=== PATIENT | male | born 1935 | race Caucasian/White ===

== ENCOUNTER 2018-06-05 04:32 | Inpatient (IN) ==
[2018-06-05] MEDS ORDERED: MORPHINE IV ONE (04:37)
[2018-06-05] MEDS ORDERED: ZOFRAN IV ONE (04:37)
[2018-06-05] MEDS ORDERED: TORADOL IV ONE (04:37)
[2018-06-05] MEDS ORDERED: NS 1,000 ML IV ONE (04:37)
--- NOTE | 2018-06-05 04:40 | PROVIDER DOCUMENTATION ---
HPI-Musculoskeletal Pain/Inj - GENERAL Chief Complaint: Fall Stated Complaint: GENERAL Time Seen by Provider: 06/05/18 04:34 Source: patient, EMS - HX OF PRESENT ILLNESS-MUSKULOSKELTAL Nature of Presenting Problem: Patient states that he has had diarrhea for a couple of days, and falls a lot, tonight got out of bed to go to the bathroom, was not able to hold his stool and had diarrhea on the floor. Patient then slipped and fell on his back and right shoulder, injuring his shoulder. States he laid there for "a good long while." EMS report there was stool "all over the place" and "he was covered in it." No D-stick was done, no IV started. Patient complains of having right shoulder and back pain and chills. Similar symptoms -11/26- fall with fracture to right clavicle and 01/25 fall with hip fracture Quality of Pain: reports: sharp Severity in ED: severe Onset/Duration: 4-6 hours ago Timing: still present, constant Modifying Factors: improves with: immobilization. worse with: movement Any recent injury?: Yes (as above) Locality of Occurance: Other (lives at [place]) Similar Symptoms Previously?: Yes (as above) Recently seen or treated by another doctor?: No Review of Systems - Adult - REVIEW OF SYSTEMS - ADULT Constitutional: reports: see HPI, chills. denies: fever, fatique, night sweats , weight gain, weight loss Eyes: reports: no symptoms reported Ears, Nose, Mouth & Throat: reports: no symptoms reported Cardiovascular: reports: no symptoms reported Respiratory: reports: no symptoms reported Gastrointestinal: reports: see HPI, diarrhea, nausea. denies: abdominal pain, hematemesis, constipation, difficulty swallowing, frequent heartburn, poor appetite, rectal bleeding, vomiting Genitourinary: reports: no symptoms reported Musculoskeletal: reports: no symptoms reported Integumentary: reports: no symptoms reported Neurological: reports: no symptoms reported Psychiatric: reports: no symptoms reported Endocrine: reports: no symptoms reported Hematologic/Lymphatic: reports: no symptoms reported Allergic/Immunologic: reports: no symptoms reported All Other Systems: Reviewed and Negative Past History - Adult - PAST MEDICAL HISTORY-ADULT Review of Records: reports: Old Records Reviewed, Nursing Assessment Review, Medications Reviewed, Social history reviewed & non-contributory. Major Childhood Illnesses: reports: denies history Cardiovascular: reports: HTN Respiratory: reports: denies history Gastrointestinal: reports: denies history Obstetrical/Gynecological: reports: denies history Genitourinary: reports: denies history Musculoskeletal: reports: denies history Neurological: reports: denies history Endocrine/Immune: reports: Diabetes Other Conditions: reports: denies history - PRIOR SURGERIES/PROCEDURES Surgical/Procedure History: reports: recent surgery (L hip replacement) - IMMUNIZATION STATUS Childhood Immunizations: See Nurse Assessment Flu Vaccine: See Nurse Assessment - FAMILY HISTORY Family History: reviewed, not pertinent - SOCIAL HISTORY Smoking: non-smoker Substance Use: none/never Alcohol Use Frequency: never Living Situation: alone (at [place]) Physical Exam-Injury Related - Physical Exam-Injury Related Initial Vital Signs Reviewed: Yes (VSSAF) General Appearance: alert, mild distress, anxious Eyes: PERRL/EOMI, pink conjunctivae Head, Ears, Nose, Mouth & Throat: normocephalic/atraumatic, normal ENT inspection, pharynx normal, other (dry mucous membranes). negative: moist mucous membranes Neck: non-tender, full range of motion, supple, normal inspection Respiratory: chest non-tender, lungs clear, no pleuratic chest pain, no respiratory distress, no accessory muscle use, rhonchi (rare scattered) Cardiovascular: normal peripheral pulses, regular rate, rhythm, no edema, no gallop, no JVD, no murmur Chest/Breast: no tenderness Abdominal Exam: normal bowel sounds, non tender, soft, no organomegaly, abnormal bowel sounds (hyperactive) Lymphatic: no adenopathy Back Exam: no CVA tenderness, decreased range of motion, muscle spasm Extremity: no pedal edema, no calf tenderness, swelling, tenderness (right shoulder anteriorly, held in ADduction and internal rotation). negative: normal range of motion, non-tender, normal gait, normal inspection Integumentary: normal color, blanching, other (cool, clammy). 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 tested, grossly normal, no motor/sensory deficits Psych/Mental Status: normal mood/affect, normal thought content, normal thought process, oriented x 3 - Glascow Coma Score Best Eye Response ([place]): (4) open spontaneously Best Verbal Response ([place]): (5) oriented Best Motor Response ([place]): (6) obeys commands Progress - PLAN OF CARE/RESULTS Progress/Plan/Lab Results: Vital Signs - 8 hr 06/05/18 05:06 06/05/18 08:00 06/05/18 08:25 Temperature 97.7 F 97.8 F Pulse Rate 64 78 Respiratory Rate 16 16 Blood Pressure 146/54 135/81 O2 Sat by Pulse Oximetry 96 97 06/05/18 05:20 Influenza Screen - Final Nasopharyngeal Laboratory Results - last 24 hr 06/05/18 06/05/18 06/05/18 05:20 05:20 05:20 WBC 6.27 RBC 3.66 L Hgb 10.8 L Hct 32.8 L MCV 89.6 MCH 29.5 MCHC 32.9 L RDW Std Deviation 14.9 H Plt Count 156 MPV 10.2 Immature Gran % (Auto) 0.0 Neut % (Auto) 70.9 Lymph % (Auto) 16.1 L [place] % (Auto) 9.1 Eos % (Auto) 3.7 Baso % (Auto) 0.2 Immature Gran # (Auto) 0.00 Neut # (Auto) 4.45 Lymph # (Auto) 1.01 L [place] # (Auto) 0.57 Eos # (Auto) 0.23 Baso # (Auto) 0.01 PT INR Specimen Type ARTERIAL Sample Site R RADIAL pH 7.49 H pCO2 37 pO2 90 HCO3 28.5 H Base Excess 4.6 H Oxyhemoglobin 96.2 ABG O2 Sat (Calculated) 14.2 L ABG O2 Saturation 98.2 ABG Carboxyhemoglobin 1.30 ABG Methemoglobin 0.7 Umberto Test YES A-a O2 Difference 13.0 Total Hemoglobin 10.4 L Lactate 0.90 Blood Gas Modality ROOM AIR FiO2 % 21.0 Sodium 138 Potassium 4.5 Chloride 97 L Carbon Dioxide 30 Anion Gap 11 BUN 24 H Creatinine 0.8 Estimated GFR/1.73 m2 > 60 BUN/Creatinine Ratio 30 Glucose 119 H POC Glucose Calculated Osmolality 281 Calcium 8.9 Magnesium 1.7 Total Bilirubin 0.36 AST 19 ALT 11 Alkaline Phosphatase 62 Creatine Kinase 171 Troponin T Jst-[id number]-Uxsbrryhgwf Pept Total Protein 7.0 Albumin 4.3 Globulin 2.7 Albumin/Globulin Ratio 1.6 Plasma Lactate Urine Source Urine Color Urine Turbidity Urine pH Ur Specific [place] Urine Protein Ur Glucose (Stick) Ur Ketones (Stick) Urine Blood Urine Nitrite Urine Bilirubin Urobilinogen Dipstick Urine Leukocytes Urine WBC (Auto) Urine RBC (Auto) U Epithel Cells (Auto) Urine Bacteria (Auto) Acetone Level NEGATIVE 06/05/18 06/05/18 06/05/18 05:20 05:20 05:20 WBC RBC Hgb Hct MCV MCH MCHC RDW Std Deviation Plt Count MPV Immature Gran % (Auto) Neut % (Auto) Lymph % (Auto) [place] % (Auto) Eos % (Auto) Baso % (Auto) Immature Gran # (Auto) Neut # (Auto) Lymph # (Auto) [place] # (Auto) Eos # (Auto) Baso # (Auto) PT 14.7 INR 1.07 Specimen Type Sample Site pH pCO2 pO2 HCO3 Base Excess Oxyhemoglobin ABG O2 Sat (Calculated) ABG O2 Saturation ABG Carboxyhemoglobin ABG Methemoglobin Umberto Test A-a O2 Difference Total Hemoglobin Lactate Blood Gas Modality FiO2 % Sodium Potassium Chloride Carbon Dioxide Anion Gap BUN Creatinine Estimated GFR/1.73 m2 BUN/Creatinine Ratio Glucose POC Glucose Calculated Osmolality Calcium Magnesium Total Bilirubin AST ALT Alkaline Phosphatase Creatine Kinase Troponin T Udx-S-Mlrovkijlgw Pept 148 Total Protein Albumin Globulin Albumin/Globulin Ratio Plasma Lactate 1.1 Urine Source Urine Color Urine Turbidity Urine pH Ur Specific [place] Urine Protein Ur Glucose (Stick) Ur Ketones (Stick) Urine Blood Urine Nitrite Urine Bilirubin Urobilinogen Dipstick Urine Leukocytes Urine WBC (Auto) Urine RBC (Auto) U Epithel Cells (Auto) Urine Bacteria (Auto) Acetone Level 06/05/18 06/05/18 06/05/18 05:20 05:25 06:45 WBC RBC Hgb Hct MCV MCH MCHC RDW Std Deviation Plt Count MPV Immature Gran % (Auto) Neut % (Auto) Lymph % (Auto) [place] % (Auto) Eos % (Auto) Baso % (Auto) Immature Gran # (Auto) Neut # (Auto) Lymph # (Auto) [place] # (Auto) Eos # (Auto) Baso # (Auto) PT INR Specimen Type Sample Site pH pCO2 pO2 HCO3 Base Excess Oxyhemoglobin ABG O2 Sat (Calculated) ABG O2 Saturation ABG Carboxyhemoglobin ABG Methemoglobin Umberto Test A-a O2 Difference Total Hemoglobin Lactate Blood Gas Modality FiO2 % Sodium Potassium Chloride Carbon Dioxide Anion Gap BUN Creatinine Estimated GFR/1.73 m2 BUN/Creatinine Ratio Glucose POC Glucose 119 H Calculated Osmolality Calcium Magnesium Total Bilirubin AST ALT Alkaline Phosphatase Creatine Kinase Troponin T < 0.010 Hwm-P-Bsnvdnxqwjw Pept Total Protein Albumin Globulin Albumin/Globulin Ratio Plasma Lactate Urine Source CLEAN CATCH Urine Color YELLOW Urine Turbidity CLEAR Urine pH 7.5 Ur Specific [place] 1.005 Urine Protein NEGATIVE Ur Glucose (Stick) NEGATIVE Ur Ketones (Stick) NEGATIVE Urine Blood NEGATIVE Urine Nitrite NEGATIVE Urine Bilirubin NEGATIVE Urobilinogen Dipstick NORMAL Urine Leukocytes NEGATIVE Urine WBC (Auto) <10 Urine RBC (Auto) <10 U Epithel Cells (Auto) <10 Urine Bacteria (Auto) NEGATIVE Acetone Level Orders Category Date Time Status Arm Sling DIRECTED Care 06/05/18 04:38 Active Finger Stick Blood Sugar (ED) DIRECTED Care 06/05/18 04:34 Active Nursing- Obtain EKG once Care 06/05/18 04:36 Active Saline Loc NOW Care 06/05/18 04:34 Active CHEST-PORTABLE [RAD] Stat Exams 06/05/18 04:[address] HEAD/C-SPINE W/O CONTRAST [CT] Stat Exams 06/05/18 04:[address] T-SPINE/L-SPINE W/O CON [CT] Stat Exams 06/05/18 04:36 Completed SHOULDER-RIGHT [RAD] Stat Exams 06/05/18 04:36 Completed ABG [RESP] Routine Lab 06/05/18 05:20 Completed ACETONE SERUM [CHEM] Stat Lab 06/05/18 05:20 Completed BLOOD CULTURE [BLDCUL] Stat Lab 06/05/18 05:20 Results CBC WITH ELECTRONIC DIFF [HEME] Stat Lab 06/05/18 05:20 Completed CK PROFILE [SP CHEM] Stat Lab 06/05/18 05:20 Completed COMPREHENSIVE METABOLIC PANEL [CHEM] Stat Lab 06/05/18 05:20 Completed INFLUENZA SCREEN A/B Stat Lab 06/05/18 05:20 Completed LACTATE, PLASMA [CHEM] Stat Lab 06/05/18 05:20 Completed MAGNESIUM [CHEM] Stat Lab 06/05/18 05:20 Completed PRO B-NATRIURETIC PEPTIDE Stat Lab 06/05/18 05:20 Completed PROTIME WITH INR [COAG] Stat Lab 06/05/18 05:20 Completed Stool [C DIFF TOXIN] [STOOL] Stat Lab 06/05/18 04:36 Uncollected Stool [OCCULT BLOOD SCREENING] [STOOL] Stat Lab 06/05/18 04:36 Uncollected TROPONIN T Stat Lab 06/05/18 05:20 Completed URINALYSIS W/POSS RFLX CULT [URINALYSIS] Stat Lab 06/05/18 05:25 Completed 0.9% Sodium Chloride Inj [Ns] 1,000 ml Med 06/05/18 04:37 Discontinued IV 999 mls/hr Ketorolac [Toradol] Med 06/05/18 04:37 Discontinued 15 mg IV NOW ONE Morphine Med 06/05/18 04:37 Discontinued 2 mg IV NOW ONE Ondansetron [Zofran] Med 06/05/18 04:37 Discontinued 4 mg IV NOW ONE EKG [EKG] Stat Ther 06/05/18 04:34 Draft Result Diagrams: 06/05/18 05:20 06/05/18 05:20 - XRAY 1 XRAY: Right XRAY Study: Shoulder Impression: Abnormal (Impacted, comminuted right humeral neck fracture, ild distal clavicle fracture) Comparison with other Films: changes noted XRAY Interpretation: read by me at 0507 2 XRAY Study: Chest Impression: Abnormal (Read by me at 0620: CM, tortuous aorta, increased interstitial markings, left total shoulder replacement, right impacted humeral neck fracture) - CT/MRI 1 CT Study: Head (and C-Spine) Impression: Normal, See EMR Report (EXAM : CT HEAD/C-SPINE W/O CONTRAST HISTORY: head injury/pain TECHNIQUE: 1. CT head without contrast 2. CT cervical spine without contrast COMPARISON: 11/22/2017 FINDINGS: Head: No parenchymal hemorrhage. No epidural or subdural hematoma. No subarachnoid hemorrhage. There is atrophy with chronic microvascular ischemic changes. No mass identified on this noncontrasted exam. No hydrocephalus. No skull fracture. Cervical spine: There are severe degenerative changes throughout the cervical spine. There is fusion of several lower cervical vertebra. No subluxation. No acute fracture. The appearance is similar to the prior study. IMPRESSION: Head: No hemorrhage. No injury. Cervical spine: No acute fracture. This exam was performed using automated exposure control, adjustment of mA or kV according to patient size, and/or use of iterative reconstruction technique. Electronically signed by Bon Bobby 06/05/2018 6:18 AM 18 Interpreting Physician: Bon Bobby MD Dictated Date/Time: 06/05/18613 cc: Roosevelt Gonzalez MD; Javi Kwok MD) 2 CT Study: Lumbar Spine (and T-Spine) Impression: Abnormal (EXAM: CT T-SPINE/L-SPINE W/O CON HISTORY: fall injury TECHNIQUE: 1. CT thoracic spine without contrast 2. CT lumbar spine without contrast COMPARISON: None. No plain films obtained. FINDINGS: Thoracic spine : The bones are osteopenic. There is exaggerated kyphosis as well as mild scoliosis. There are diffuse degenerative changes throughout with diverticulosis. Old compression fractures to the lower four thoracic vertebra. These were present on the prior chest CT from 02/06/2016 There is a moderate sized hiatal hernia. Prominent atherosclerosis. No pneumothoraces. No pleural effusions. CT lumbar spine without contrast: The bones are osteopenic. Mild scoliosis. Degenerative bone spurring is found throughout. Old mild compression fracture L2 vertebra. No acute fracture. There is a distal abdominal aortic aneurysm measuring at least 5.6 cm in transverse diameter. Severe atherosclerosis. The aneurysm does not extend into the iliac arteries. No retroperitoneal hematoma. IMPRESSION: Thoracic spine: No acute fracture Lumbar spine: No acute fracture. There is a distal abdominal aortic aneurysm. This exam was performed using automated exposure control, adjustment of mA or kV according to patient size, and/or use of iterative reconstruction technique. Electronically signed by Bon Bobby 06/05/2018 6:31 AM 06/05/18 0631 Interpreting Physician: Bon Bobby MD Dictated Date/Time: 06/05/18 0624 cc: Roosevelt Gonzalez MD; Javi Kwok MD), See EMR Report - CONSULTS/PCP/HOSPITALIST Notification #1 *Consult/PCP/Hospitalist*: MAGGIE ESPINAL , 1ST ADMISSION REQUEST Time Discussed: 08:23 #2 Consult: MAGGIE ESPINAL ACCEPTS TO DR NAIDU - CHANGE OF SHIFT REPORT (ED Provider) Report Given and Care Transferred to:: Dr. Bernardo Saleh Time of Transfer: 07:00 Items Pending: Labs, CT/MRI Results Comment: Diarrhea, fall, right humeral neck fracture Departure - Departure Date of Disposition Decision: 06/05/18 Time of Disposition Decision: 09:07 DIAGNOSIS: Abdominal aortic aneurysm (AAA) greater than 5.5 cm in diameter in male, Weakness, Anemia Fall Qualifiers: Encounter type: initial encounter Qualified Code(s): W19.XXXA - Unspecified fall, initial encounter Closed comminuted right humeral fracture Qualifiers: Encounter type: initial encounter Humerus Location: shaft Fracture alignment: displaced Qualified Code(s): S42.351A - Displaced comminuted fracture of shaft of humerus, right arm, initial encounter for closed fracture Diarrhea Qualifiers: Diarrhea type: unspecified type Qualified Code(s): R19.7 - Diarrhea, unspecified Disposition: ADMITTED INPATIENT 09 Certified Medical Emergency: Emergent Condition: Stable Referrals and Follow-Ups: Javi Kwok MD [Primary Care Provider] - - Critical Care Note This patient required my direct & personal management of CC.: No Attestation - Physician/ PRINCESS Attestation Patient care was provided by Advanced Practice Provider:: No The physician spent face to face time with patient:: Yes Advanced Practice Provider documentation review:: Supervising physician onsite and consulted in the evaluation and care of this patient. The physician did have a face to face encounter with the patient.
[2018-06-05 05:29] LABS: ALLEN TEST YES; BE 4.6 mmoll (-3.0-3.0); BLOOD TYPE ARTERIAL; HCO3-(ACT) 28.5 mmoll (20.0-26.0); METHB 0.7 % (0.0-1.5); O2(CT) 14.2 mL/dL (15.0-23.0); O2HB 96.2 % (95.0-99.0); PCO2(98.6) 37 mmHg (35-45); PO2(98.6) 90 mmHg (60-100); SAMPLE BLOOD; SAO2 98.2 % (95.0-100.0); THB 10.4 g/dL (11.5-17.4); pH(98.6) 7.49 (7.35-7.45)
[2018-06-05 05:31] LABS: MODALITY ROOM AIR
[2018-06-05 06:08] LABS: URINE SOURCE CLEAN CATCH
[2018-06-05 06:15] LABS: BASO# 0.01 X1000 (0.0-0.2); BASO% 0.2 % (0.0-0.8); EOS# 0.23 X1000 (0.0-0.7); EOS% 3.7 % (0.0-10.0); HEMATOCRIT 32.8 % (42.0-52.0); HEMOGLOBIN 10.8 g/dL (14.0-18.0); LYMPH# 1.01 X1000 (1.2-3.4); LYMPH% 16.1 % (20.5-51.1); MCH 29.5 PG (27-31); MCHC 32.9 g/dL (33-37); MCV 89.6 FL (81-99); MONO# 0.57 X1000 (0.11-0.59); MONO% 9.1 % (1.7-9.3); MPV 10.2 FL (7.4-10.4); NEUT# 4.45 X1000 (1.4-6.5); NEUT% 70.9 % (42.2-75.2); PLT 156 X1000 (130-400); RBC 3.66 XMIL (4.7-6.1); RDW 14.9 % (11.5-14.5); WBC 6.27 X1000 (4.8-10.8)
[2018-06-05 06:18] LABS: BILIRUBIN URINE NEGATIVE (NEGATIVE); BLOOD URINE NEGATIVE (NEGATIVE); COLOR YELLOW; GLUCOSE URINE NEGATIVE (NEGATIVE); KETONE URINE NEGATIVE (NEGATIVE); LEUKOCYTES URINE NEGATIVE (NEGATIVE); NITRITE URINE NEGATIVE (NEGATIVE); PH URINE 7.5; PROTEIN URINE NEGATIVE (NEGATIVE); SP GRAVITY URINE 1.005; TURBIDITY URINE CLEAR (CLEAR); UR EPITHELIAL CELLS <10 /HPF (<10); URINE BACTERIA NEGATIVE /HPF; URINE RBC <10 /HPF (<10); URINE WBC <10 /HPF (<10); UROBILINOGEN URINE NORMAL (NORMAL)
--- NOTE | 2018-06-05 06:20 | Diag Imaging Result Doc PS360 ---
EXAM : CT HEAD/C-SPINE W/O CONTRAST HISTORY: head injury/pain TECHNIQUE: 1. CT head without contrast 2. CT cervical spine without contrast COMPARISON: 11/22/2017 FINDINGS: Head: No parenchymal hemorrhage. No epidural or subdural hematoma. No subarachnoid hemorrhage. There is atrophy with chronic microvascular ischemic changes. No mass identified on this noncontrasted exam. No hydrocephalus. No skull fracture. Cervical spine: There are severe degenerative changes throughout the cervical spine. There is fusion of several lower cervical vertebra. No subluxation. No acute fracture. The appearance is similar to the prior study. IMPRESSION: Head: No hemorrhage. No injury. Cervical spine: No acute fracture. This exam was performed using automated exposure control, adjustment of mA or kV according to patient size, and/or use of iterative reconstruction technique. Electronically signed by Bon Bobby 06/05/2018 6:18 AM
[2018-06-05 06:32] LABS: ACETONE SERUM NEGATIVE (NEGATIVE)
[2018-06-05 06:33] LABS: AGAP 11; ALB/GLOB RATIO 1.6; ALBUMIN 4.3 g/dL (3.5-5.0); ALKALINE PHOSPHATASE 62 U/L (32-122); BUN 24 mg/dL (8-22); CALCIUM 8.9 mg/dL (8.8-10.2); CHLORIDE 97 mmol/L (98-107); CK PROFILE 171 U/L (24-204); COSMO 281; CREATININE 0.8 mg/dL (0.7-1.2); ESTIMATED GFR > 60; GLUCOSE 119 mg/dL (70-104); GOT 19 U/L (10-34); GPT 11 U/L (10-44); MAGNESIUM 1.7 mg/dL (1.5-2.7); POTASSIUM 4.5 mmol/L (3.5-5.1); SODIUM 138 mmol/L (136-145); TCO2 30 mmol/L (25-35); TOTAL BILIRUBIN 0.36 mg/dL (0.20-1.00)
--- NOTE | 2018-06-05 06:34 | Diag Imaging Result Doc PS360 ---
EXAM: CT T-SPINE/L-SPINE W/O CON HISTORY: fall injury TECHNIQUE: 1. CT thoracic spine without contrast 2. CT lumbar spine without contrast COMPARISON: None. No plain films obtained. FINDINGS: Thoracic spine: The bones are osteopenic. There is exaggerated kyphosis as well as mild scoliosis. There are diffuse degenerative changes throughout with diverticulosis. Old compression fractures to the lower four thoracic vertebra. These were present on the prior chest CT from 02/06/2016 There is a moderate sized hiatal hernia. Prominent atherosclerosis. No pneumothoraces. No pleural effusions. CT lumbar spine without contrast: The bones are osteopenic. Mild scoliosis. Degenerative bone spurring is found throughout. Old mild compression fracture L2 vertebra. No acute fracture. There is a distal abdominal aortic aneurysm measuring at least 5.6 cm in transverse diameter. Severe atherosclerosis. The aneurysm does not extend into the iliac arteries. No retroperitoneal hematoma. IMPRESSION: Thoracic spine: No acute fracture Lumbar spine: No acute fracture. There is a distal abdominal aortic aneurysm. This exam was performed using automated exposure control, adjustment of mA or kV according to patient size, and/or use of iterative reconstruction technique. Electronically signed by Bon Bobby 06/05/2018 6:31 AM
[2018-06-05 06:44] LABS: INR 1.07; PROTIME 14.7 Seconds (11.0-16.0)
--- NOTE | 2018-06-05 07:30 | EKG Report ---
Test Performed on : 06/05/2018 06:57:39 AM Test Reason : fall Blood Pressure : / mmHG Vent. Rate : 068 BPM Atrial Rate : 068 BPM P-R Int : 212 ms QRS Dur : 106 ms QT Int : 446 ms P-R-T Axes : 000 207 115 degrees QTc Int : 474 ms Sinus rhythm. with 1st degree AV block. with occasional premature ventricular complexes. 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
--- NOTE | 2018-06-05 07:39 | Diag Imaging Result Doc PS360 ---
EXAM: CHEST-PORTABLE HISTORY: fall TECHNIQUE: Portable chest single view COMPARISON: 11/22/2017 FINDINGS: The lungs are well expanded. No contusion. No pneumothorax. The heart is not enlarged. The vessels are not distended. There are no infiltrates. No effusion identified. There is a right humeral neck fracture. Old injury to the distal right clavicle. Prior orthopedic replacement of the left shoulder. IMPRESSION: Right humeral neck fracture. Electronically signed by Bon Bobby 06/05/2018 7:37 AM
--- NOTE | 2018-06-05 08:26 | Diag Imaging Result Doc PS360 ---
EXAM: SHOULDER-RIGHT INDICATION: fall TECHNIQUE: 2 views COMPARISON: 11/22/2017 FINDINGS: There is an acute fracture involving the surgical neck of the humerus with mild comminution. There is an older fracture involving the distal clavicle with superior displacement that was also seen on the previous study. It is essentially stable and there is little if any bony bridging. No other discrete fracture or dislocation is appreciated. Surrounding soft tissues are essentially unremarkable. IMPRESSION: Acute fracture involving the proximal humerus as described. Older fracture involving the distal clavicle that is stable. Electronically signed by Jackson Lovell 06/05/2018 8:24 AM
--- NOTE | 2018-06-05 09:59 | ED EKG INTERP ---
This chart was entered by Valentine Blood Scribe, acting as scribe for Juan Ramon Saleh MD. EKG Interpretation - EKG Time of EKG reading by physician:: 06:57 EKG Read and Signed by:: Juan Ramon Saleh EKG Interpretation (*Must complete 3 of following elements*): Abnormal Rate: 68 Rhythm: SR with 1st degree AV block w/ occ pvc Fowler: right (superior axis deviation) QRS: RBB (incomplete) CT Interval: normal Comments: septal infarct, age undetermined Attestation - Physician/ PRINCESS Attestation Patient care was provided by Advanced Practice Provider:: No The physician spent face to face time with patient:: Yes Advanced Practice Provider documentation review:: Supervising physician onsite and consulted in the evaluation and care of this patient. The physician did have a face to face encounter with the patient. This chart was documented by the indicated scribe, (Valentine Blood Scribe) and accurately reflects the services I performed and decisions made by me, Juan Ramon Saleh MD, as attested by the provider's signature.
[2018-06-05 10:43] LABS: HEMOGLOBIN A1C 6.3 % (4.8-6.0)
[2018-06-05] MEDS: HUMULIN R SUBQ SCH ×3 (11:00→21:07)
[2018-06-05] MEDS ORDERED: MORPHINE IV PRN (11:24)
[2018-06-05] MEDS: DUONEB (A & A) INH SCH ×4 (11:30→23:19)
--- NOTE | 2018-06-05 11:31 | HISTORY AND PHYSICAL ---
PRIMARY CARE PHYSICIAN: Dr. Javi Kwok CHIEF COMPLAINT: Fall with right shoulder pain. HISTORY OF PRESENT ILLNESS: Mr. Dyer is a pleasant 82-year-old male with a history of type 2 diabetes, hyperlipidemia, hypertension, recurrent falls, and possible dementia, who comes from [facility] with fall and acute right shoulder pain. He denies syncope or presyncope. No head trauma. However, he is a poor historian. He states he was going to the bathroom and tried to grab one of the handrails and fell. He immediately had right shoulder pain and was brought to the ER for evaluation. He was found to have a proximal humerus fracture with mild comminution. He had C spine and thoracic and lumber spine CT that did not show anything acute. There was incidental distal abdominal aortic aneurysm measured at 5.6 cm noted, and there were also chronic changes noted throughout the spine and brain but nothing acute. His laboratory data shows some mild anemia, otherwise unremarkable. Along with the shoulder pain, he reports some diarrhea over the past few days but no abdominal pain, no hematochezia, no melena, no fever, no nausea or vomiting. He will be admitted for further treatment and evaluation. PAST MEDICAL HISTORY: 1. Type 2 diabetes, not on insulin. 2. Hypertension. 3. BPH. 4. Anxiety and depression. 5. Hyperlipidemia. PAST SURGICAL HISTORY: He has had a left shoulder arthroplasty and left hip arthroplasty. SOCIAL HISTORY: He lives at [facility]. He is . He does have a cousin at the bedside but apparently no other family members. FAMILY HISTORY: Noncontributory. REVIEW OF SYSTEMS: A 14-point review of systems was obtained and found to be negative with the exception of the HPI. HOME MEDICATIONS: Aspirin 81 mg daily, vitamin D3 10,000 units p.o. as directed, diltiazem XR 240 mg p.o. daily, Colace 100 mg p.o. b.i.d. as needed for constipation, Lexapro 20 mg daily, finasteride 5 mg p.o. q.p.m., Monopril 40 mg daily, Glucophage 500 mg p.o. b.i.d., Prilosec 20 mg daily, Zofran 4 mg p.o. as directed, MiraLAX 17 g daily, Zocor 10 mg daily, Januvia 100 mg p.o. daily, Flomax 0.4 mg with supper, Xanax 0.5 mg p.o. b.i.d., fluticasone nasal spray as directed. PHYSICAL EXAMINATION: VITAL SIGNS: Blood pressure is 135/81, heart rate 78, respiratory rate is 16, O2 saturation is 97% on room air. Temperature is 97.7. GENERAL: Elderly and frail appearing 82-year-old male lying in hospital bed, no acute distress. NEUROLOGICAL: The patient is slightly disoriented. He is unable to get the month correct or who our current president is. He does follow commands without focal deficits. HEENT: Head is atraumatic and normocephalic. Pupils are sluggish to light response but equal bilaterally. Oral mucosa is dry. NECK: Trachea midline. There is no JVD. CHEST: Clear to auscultation bilaterally. There is hematoma over the right anterior shoulder with mild deformity noted. Distal pulses intact. ABDOMEN: Soft, nondistended and nontender. Bowel sounds are active. EXTREMITIES: Without edema. Pulses are diminished, 1+ bilaterally. He does have warm extremities. DIAGNOSTIC DATA: Shoulder x-ray shows proximal humerus fracture, old fracture involving the distal clavicle that is stable. Thoracic and L spine CT showed no fractures, distal abdominal aortic aneurysm, chronic changes. Head and C spine CT with chronic changes, nothing acute. EKG is sinus rhythm without acute ST or T abnormalities. Chest x-ray does not show anything acute. WBC is 6.27, hemoglobin 7.8, hematocrit 32.8, platelet count 156. INR is 1.07. ABG on room air shows pH of 7.49, CO2 of 37, O2 of 90, bicarb 28.5. Sodium is 138, potassium 4.5, chloride 97, CO2 is 30, anion gap 11, BUN is 24, creatinine 0.8, glucose 119. LFTs within normal limits. Troponin and albumin negative. ProBNP is 148. UA is negative. ASSESSMENT AND PLAN: 1. Generalized weakness with frequent falls. We will admit the patient. Make sure there has not been acute CO with cardiac enzymes. We will also lightly hydrate, get Physical Therapy and Case Management onboard for further assessment and evaluation. 2. Right humeral fracture. Orthopedics has been consulted. We will add p.o. pain medication. 3. Diarrhea: Will send sample for Cdiff, treat accordingly. 4. Anemia. Iron studies are pending. We will treat accordingly. 5. Type 2 diabetes. We will add pattern sugars, sliding scale insulin, and check hemoglobin A1c. 6. Hypertension, stable. Continue home medications. Disposition. The patient is currently residing at [facility]. We will have Physical Therapy, Case Management, and Social Work follow along to evaluate adequacy of that situation and make any necessary referrals. 7. DVT prophylaxis with SCDs. Further recommendations to follow. Dictated by MAGGIE Jacobson for Yonathan Singh MD cc: MAGGIE Jacobson MD MTDD
[2018-06-05] MEDS: NORCO-7.5 PO PRN (21:14)
--- NOTE | 2018-06-06 01:06 | CONSULTATION ---
DATE OF CONSULTATION: 06/05/2018 CHIEF COMPLAINT: Right arm injury. HISTORY OF PRESENT ILLNESS: Archie Dyer is an 82-year-old male who fell, injuring his right arm. Complains of right shoulder pain and inability to raise his arm. PHYSICAL EXAMINATION: Reveals a well-developed, well-nourished male. He is alert, oriented, and cooperative with the exam. His arm reveals pain with any range of motion. His arm is neurovascularly intact. Past medical history, past surgical history, medicines, allergies, see admission history and physical. DIAGNOSTIC DATA: X-rays show a nondisplaced comminuted right surgical neck fracture. IMPRESSION: Right comminuted surgical neck fracture, with healing right clavicle fracture. PLAN: I have discussed treatment of his shoulder with him. I think we should treat this nonoperatively, with oral pain medicine, and hopefully rehab placement. cc: Armando Louise MD
[2018-06-06] MEDS: DUONEB (A & A) INH SCH ×6 (03:28→23:04)
[2018-06-06] MEDS: HUMULIN R SUBQ SCH ×4 (06:21→21:34)
[2018-06-06 06:23] LABS: HEMATOCRIT 27.6 % (42.0-52.0); MCH 30.1 PG (27-31); MCHC 32.6 g/dL (33-37); MCV 92.3 FL (81-99); MPV 10.1 FL (7.4-10.4); RBC 2.99 XMIL (4.7-6.1); WBC 6.16 X1000 (4.8-10.8)
[2018-06-06 06:54] LABS: AGAP 8; BUN 21 mg/dL (8-22); CALCIUM 8.4 mg/dL (8.8-10.2); CHLORIDE 96 mmol/L (98-107); COSMO 275; CREATININE 0.6 mg/dL (0.7-1.2); ESTIMATED GFR > 60; GLUCOSE 139 mg/dL (70-104); SODIUM 135 mmol/L (136-145); TCO2 31 mmol/L (25-35)
[2018-06-06] MEDS: NORCO-7.5 PO PRN ×2 (09:15→22:04)
--- NOTE | 2018-06-06 13:17 | PROGRESS NOTE ---
DATE: 06/06/2018 SUBJECTIVE: Archie Dyer is an 82-year-old male who has a right proximal humerus fracture. He states he has had no significant improvement since last night. OBJECTIVE: He is a well-developed, well-nourished male. He is alert, oriented, and cooperative. Exam shows his arm is neurovascularly intact. He has pain with any range of motion. ASSESSMENT: Stable right proximal humerus fracture. PLAN: He will likely go to rehab the first part of the week as he is not going to be able to return to independent living at least for now. We can continue to treat this non operatively however. cc: Armando Louise MD [facility]
--- NOTE | 2018-06-06 15:29 | PROGRESS NOTE ---
DATE: 06/06/2018 SUBJECTIVE: The patient is sitting at the bedside on a chair. He is still complaining of some pain but, compared with yesterday, he looks better. He is tolerating p.o. without any problem. He is alert and oriented x3. We will continue with the same management. OBJECTIVE: Vital Signs: Temperature 98.7, pulse 90, respiratory rate 16, blood pressure 114/75, oxygen saturation 100% on 2 L of nasal cannula. HEENT: Head normocephalic. No trauma. PERRLA. Neck supple. No JVD. No masses. Central trachea. Chest clear to auscultation. No wheezing. No rales. Abdomen soft, nontender, nondistended. No hepatosplenomegaly. Extremities: Right shoulder with some deformity and painful to palpation and mobilization. Neurologic: The patient is alert and oriented x3. No focal deficits. LABORATORY: WBC 6.1, hemoglobin 9, hematocrit 27.6, platelet 119,000. Sodium 135, potassium 4, chloride 96, bicarbonate 31. BUN 21. Creatinine 0.6. Glucose 139, calcium 8.4, magnesium 1.8. ASSESSMENT AND PLAN: 1. Right proximal humeral fracture. No plan for surgery for this patient. Orthopedic Surgery is following this patient. Likely this patient will need to go to a rehab center early next week. 2. Generalized weakness and frequent falls, aware. Continue physical therapy. 3. Diarrhea, stable. No diarrhea today. 4. Anemia. Continue to monitor. 5. Type 2 diabetes. Continue pattern of blood sugar and sliding scale insulin. His hemoglobin A1c is 6.3. 6. Hypertension, stable. Continue with home medications. 7. Deep vein thrombosis prophylaxis with sequential compression devices. cc: Yonathan Singh MD
[2018-06-07] MEDS: DUONEB (A & A) INH SCH ×6 (03:04→23:57)
[2018-06-07] MEDS: NORCO-7.5 PO PRN ×2 (05:57→19:55)
[2018-06-07] MEDS: HUMULIN R SUBQ SCH ×4 (06:09→22:29)
[2018-06-07 06:39] LABS: AGAP 9; BUN 14 mg/dL (8-22); CALCIUM 7.8 mg/dL (8.8-10.2); CHLORIDE 95 mmol/L (98-107); COSMO 270; CREATININE 0.6 mg/dL (0.7-1.2); ESTIMATED GFR > 60; GLUCOSE 123 mg/dL (70-104); POTASSIUM 3.9 mmol/L (3.5-5.1); SODIUM 134 mmol/L (136-145); TCO2 30 mmol/L (25-35)
[2018-06-07 06:57] LABS: HEMATOCRIT 27.2 % (42.0-52.0); HEMOGLOBIN 8.8 g/dL (14.0-18.0); MCH 29.4 PG (27-31); MCHC 32.4 g/dL (33-37); MPV 10.2 FL (7.4-10.4); RBC 2.99 XMIL (4.7-6.1); RDW 14.7 % (11.5-14.5); WBC 5.89 X1000 (4.8-10.8)
--- NOTE | 2018-06-07 10:32 | PROGRESS NOTE ---
DATE: 06/07/2018 SUBJECTIVE: Archie Dyer is an 82-year-old male who has a right comminuted proximal humerus fracture. He has no new complaints. He states his shoulder is somewhat improved. OBJECTIVE: General: He is well-developed well-nourished male. He is alert and cooperative with examination. Right arm: He is sitting up and comfortable in his sling. He does have pain with any range of motion of his arm. His arm is neurovascularly intact. ASSESSMENT: Stable right proximal humerus fracture. PLAN: He will likely go to rehab tomorrow. I will need to see him back in the office once he is discharged from rehab. cc: Armando Louise MD
--- NOTE | 2018-06-07 17:42 | PROGRESS NOTE ---
DATE: 06/07/2018 SUBJECTIVE: This patient is sitting on a chair, he is still complaining of right arm pain but compared with yesterday he seems to be a little bit better. OBJECTIVE: Vital Signs: Temperature 98.3 degrees, pulse 93, respiratory rate 16, blood pressure 162/104, oxygen saturation 100% on 2 L of nasal cannula. HEENT: Head normocephalic. No trauma. PERRLA. Neck: Supple. No JVD. No masses. Central trachea. Chest: Clear to auscultation. No wheezing, no rales. Abdomen: Soft, nontender, nondistended. No hepatosplenomegaly. Extremity: Right shoulder with some deformity and painful to palpation and mobilization, pulses are present. Neurological: The patient is alert and oriented x3. No focal deficits. LABORATORY: WBC 5.8, hemoglobin 8.8, hematocrit 27.2, platelets 122,000, sodium 134, potassium 3.9, chloride 95, bicarbonate 30, BUN 14, creatinine 0.6, glucose 123, calcium 7.8, magnesium 1.8. ASSESSMENT AND PLAN: 1. Right proximal humeral fracture, no plan for surgery for this patient. Orthopedic surgery evaluated this patient already, likely this patient will need to go to a rehab center this week. 2. Generalized weakness and frequent falls aware. Continue physical therapy. 3. Diarrhea stable. No diarrhea today. 4. Anemia. Continue to monitor. 5. Type 2 diabetes. Continue with pattern of blood sugar and sliding scale insulin, hemoglobin A1c is 6.3. 6. Hypertension stable, continue home medications. 7. Deep vein thrombosis prophylaxis with sequential compression devices. cc: Yonathan Singh MD
[2018-06-08] MEDS ORDERED: EPINEPHRINE SYRINGE IV ONE (02:00)
[2018-06-08] MEDS: NORCO-7.5 PO PRN (02:44)
[2018-06-08 03:43] VITALS: BP 135/64
[2018-06-08] MEDS: DUONEB (A & A) INH SCH (03:47)
[2018-06-08] MEDS ORDERED: ZOFRAN ODT PO ONE (04:20)
--- NOTE | 2018-06-08 07:56 | PROGRESS NOTE ---
DATE: 06/08/2018 CRITICAL CARE PROGRESS NOTE At 0440 this morning, the patient's nurse stated that she was notified by the patient pet caregiver that the patient was complaining of nausea. She went in the room to check on him and found the patient lying in bed with apneic respirations. He was noted to have a faint pulse. He did ultimately become pulseless. They did call [facility]. CPR was begun. We did initiate ACLS protocol. Medication of epinephrine was given. Throughout the code the patient did have pulseless electric activity during rhythm checks. Dr. Villasenor (ER physician) as well as Dr. Meredith the attending physician for the Hospitalist Service did respond to the code as well. The patient was intubated by Dr. Villasenor. Despite all resuscitative measures being provided the patient did succumb to his illness. Resuscitative measures were ended by Dr. Meredith at 0500. There was no palpable pulse. No auscultated heart sounds. The patient did have pulseless electrical activity on the monitor. Patient's family was notified. Please see [facility] [employer] documentation and nurses' notes for further detailed information. Time of was 0500 on 06/08/2018. Dictated by MAGGIE Morataya for Mike Meredith MD cc: Mike Meredith MD [facility]
--- NOTE | 2018-06-09 05:37 | DISCHARGE SUMMARY ---
ADMISSION DATE: 06/05/2018 DISCHARGE DATE: 06/08/2018 DISCHARGE DIAGNOSES: 1. Admitted due to right proximal humeral fracture. 2. Generalized weakness and frequent falls. 3. Diarrhea. 4. Anemia. 5. Type 2 diabetes with a hemoglobin A1c of 6.3. 6. Hypertension. 7. Cardiac arrest. DATE AND TIME OF : This patient's demise is today 06/08/2018 at 5 a.m. HOSPITAL COURSE: An 79-year-old male with past medical history of diabetes, hyperlipidemia, hypertension, recurrent falls, possible dementia, came from [facility] assisted with fall and acute right shoulder pain. He denies syncope or presyncope. No head trauma. However, he is a poor historian. He states he was going to the bathroom and tried to grab one of the handrails and fell. He immediately had right shoulder pain, and was brought to the ER for evaluation. He was found to have a proximal humerus fracture with mild comminution. He had C-spine, and thoracic, and lumbar spine CT that did not show anything acute. There was incidental distal abdominal aortic aneurysm measure 5.6 cm noted, and there are also chronic changes noted throughout the spine. Laboratory showed mild anemia, otherwise unremarkable. Along with the shoulder pain, he reported some diarrhea for the past few days, but was not too much. No hematochezia or melena or melena. No fever. No nausea. No vomiting. He was admitted and evaluated by Orthopedic Surgery Department, who recommended to continue treatment. No surgery has been recommended. The patient's pain was controlled. He was always alert and oriented x3. No deficits or pain other than the shoulder pain. He was not complaining of any other symptoms. But apparently today at 0440 this morning, the patient's nurse stated that she was notified by the patient's orthopedic mechanic, that the patient was complaining of nausea. She went in the room to check on him and found the patient lying in bed with apneic respiration. He was noted to have a faint pulse, and he ultimately became pulseless. They did call [employer]. CPR was begun. We did initial ACLS protocol. Medication of epinephrine was given. Throughout the code, the patient have pulseless electrical activity during the rhythm checks. The ER doctor as well as the hospitalist doctor responded to the code as well. The patient was intubated by Dr. Chad, the ER doctor. Unfortunately, with all the resuscitative measures being provided, the patient did succumb to his illness. Resuscitative measures were ended by Dr. Meredith at 5 a.m. There was no palpable pulse, no auscultated heart sounds, no respiration, and the patient was PEA on the monitor. There is no clear cause of his since this patient's vital signs and lab work were stable. cc: Yonathan Singh MD
== END 2018-06-08 05:00 | disposition expired | DRG 563 ==
LOC: ED 04:32 → EDIPHOLD 09:22 → 4N 12:15
PROVIDERS: ATTEND Internal Medicine
CPT/HCPCS: 31500; 70450; 71010; 71045; 72125; 72128; 72131; 73030; 80048; 80053; 81001; 82009; 82550; 82746; 82805; 82948; 83036; 83605; 83735; 83880; 84484; 85025; 85027; 85610; 87040; 87275; 87276; 87804; 92950; 93005; 94640; 94761; 96361; 96374; 97116; 97162; 99285; A9270; J0171; J1885; J2270; J2405; J7030; XXXXX